=== PATIENT | female | born 1975 | race Two or more races ===

== ENCOUNTER 2017-03-17 15:47 | Emergency (ER) | payer OTHER ==
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
[~2017-03-17 15:47] MED LIST: NO MEDICATIONS; PROTONIX PO
== END 2017-03-17 18:15 | disposition home or self-care (01) ==
LOC: CED 15:47 → CFTX 15:47
DX: S40.012A Contusion of left shoulder, initial encounter (principal); I10 Essential (primary) hypertension; Z91.14 Patient's other noncompliance with medication regimen; V43.62XA Car passenger injured in collision with other type car in traffic accident, initial encounter; Y92.410 Unspecified street and highway as the place of occurrence of the external cause
CPT/HCPCS: 71020; 73502; 99283; 99284